=== PATIENT | female | born 1995 | race Caucasian/White ===

== ENCOUNTER 2017-03-03 03:56 | Outpatient (CLI) | payer OTHER ==
[~2017-03-03] VITALS: Ht 160 cm; Wt 99.5 kg
[2017-03-03 04:12] VITALS: BP 144/69
[2017-03-03 06:25] VITALS: BP 138/68
[2017-03-04] MEDS ORDERED: MOTRIN800 MG PO (08:30)
== END 2017-03-03 06:50 | disposition home or self-care (01) ==
LOC: LDRP-OP 03:56 → 2WEST 03:57 → LDRP-OP 04-06 10:21
DX: O47.1 False labor at or after 37 completed weeks of gestation (principal); O99.213 Obesity complicating pregnancy, third trimester; E66.9 Obesity, unspecified; Z68.31 Body mass index [BMI] 31.0-31.9, adult; O99.820 Streptococcus B carrier state complicating pregnancy; Z3A.39 39 weeks gestation of pregnancy
CPT/HCPCS: 59025; C1755; G0378; Q0169

== ENCOUNTER 2017-03-03 10:55 | Inpatient (IN) | payer OTHER ==
[~2017-03-03] VITALS: Ht 162.6 cm; Wt 99.0 kg
[2017-03-03] VITALS (33 sets, daily range): BP systolic 125–189; BP diastolic 58–91
[2017-03-03 16:43] LABS: EOSINOPHIL (%) 0 % (0-5); HEMATOCRIT 35.8 % (36.0-46.0); IMMATURE GRANULOCYTE (%) 0.4 % (0.0-0.7); IMMATURE GRANULOCYTE COUNT 0.1 K/uL; INSTRUMENT ABS NEUTROPHIL CT 14.2 K/uL; LYMPHOCYTE COUNT 0.9 K/uL (1.0-2.8); MCH 30.7 PG (29.0-34.0); MCHC 33.5 G/DL (30.0-36.0); MCV 91.6 FL (83-99); MEAN PLAT.VOLUME 11.9 uM^3 (9.5-12.4); MONOCYTE (%) 3.9 % (3-12); MONOCYTE COUNT 0.6 K/uL (0-0.8); NEUTROPHIL (%) 90.2 % (45-76); NEUTROPHIL COUNT 14.2 K/uL (1.8-6.4); PLATELET COUNT 216 K/uL (156-360); RBC DIS.WIDTH-CV 13.3 % (11.8-14.6); RBC DIS.WIDTH-SD 44.1 % (39-53); RED BLOOD COUNT 3.91 M/uL (3.80-5.20); WHITE BLOOD COUNT 15.7 K/uL (4.1-10.2)
[2017-03-04] VITALS (14 sets, daily range): BP systolic 116–143; BP diastolic 56–86
[2017-03-04] MEDS ORDERED: MOTRIN800 MG PO (08:30)
[2017-03-05 07:04] LABS: EOSINOPHIL (%) 0.6 % (0-5); EOSINOPHIL COUNT 0.1 K/uL (0-0.3); HEMATOCRIT 27.7 % (36.0-46.0); IMMATURE GRANULOCYTE (%) 0.6 % (0.0-0.7); IMMATURE GRANULOCYTE COUNT 0.1 K/uL; INSTRUMENT ABS NEUTROPHIL CT 7.2 K/uL; LYMPHOCYTE COUNT 1.7 K/uL (1.0-2.8); MCH 31.5 PG (29.0-34.0); MCHC 33.6 G/DL (30.0-36.0); MCV 93.9 FL (83-99); MONOCYTE (%) 7.9 % (3-12); MONOCYTE COUNT 0.8 K/uL (0-0.8); NEUTROPHIL (%) 73.2 % (45-76); NEUTROPHIL COUNT 7.2 K/uL (1.8-6.4); RBC DIS.WIDTH-CV 13.6 % (11.8-14.6); RBC DIS.WIDTH-SD 46.6 % (39-53); WHITE BLOOD COUNT 9.8 K/uL (4.1-10.2)
[2017-03-05 07:06] LABS: RED BLOOD COUNT 2.95 M/uL (3.80-5.20)
[2017-03-05 07:42] LABS: MEAN PLAT.VOLUME 11.8 uM^3 (9.5-12.4); PLAT.SUFFICIENCY DECREASED
[2017-03-05 07:45] LABS: PLATELET COUNT 144 K/uL (156-360)
[2017-03-05 21:18] VITALS: BP 118/58
[2017-03-06 07:45] VITALS: BP 120/65
[2017-03-06 15:34] VITALS: BP 128/76
== END 2017-03-06 18:04 | disposition home or self-care (01) | DRG 775 ==
LOC: LDRP-OP 10:55 → 2WEST 10:57 → LDRP-OP 04-06 08:05
PROVIDERS: Nurse Practitioner
PROC: 3E0S3BZ Introduction of Anesthetic Agent into Epidural Space, Percutaneous Approach (ICD-10-PCS; 2017-03-03)
PROC: 10E0XZZ Delivery of Products of Conception, External Approach (ICD-10-PCS; principal; 2017-03-04)
PROC: 0HQ9XZZ Repair Perineum Skin, External Approach (ICD-10-PCS; principal; 2017-03-04)
PROC: 10907ZC Drainage of Amniotic Fluid, Therapeutic from Products of Conception, Via Natural or Artificial Opening (ICD-10-PCS; 2017-03-04)
DX: O99.214 Obesity complicating childbirth (principal); E66.9 Obesity, unspecified; O99.284 Endocrine, nutritional and metabolic diseases complicating childbirth; O12.04 Gestational edema, complicating childbirth; Z3A.39 39 weeks gestation of pregnancy; O76 Abnormality in fetal heart rate and rhythm complicating labor and delivery; O70.0 First degree perineal laceration during delivery; O63.1 Prolonged second stage (of labor); Z37.0 Single live birth
CPT/HCPCS: 85025; C1755; G0378; J2540; J3010; J7120